=== PATIENT | male | born 1985 | race Caucasian/White ===

== ENCOUNTER 2021-10-30 12:18 | Emergency (ER) | payer OTHER ==
[~2021-10-30] VITALS: Ht 177.8 cm; Wt 63.0 kg
[2021-10-30 12:32] VITALS: BP 117/68
[2021-10-30 12:45] VITALS: BP 114/73
[2021-10-30 13:00] VITALS: BP 126/70
[2021-10-30 13:11] VITALS: BP 108/68
[2021-10-30 13:30] VITALS: BP 115/69
[2021-10-30 13:38] VITALS: BP 115/69
== END 2021-10-30 13:44 | DRG 125 ==
LOC: ED 12:18
DX: S01.112A Laceration without foreign body of left eyelid and periocular area, initial encounter (principal); Y00.XXXA Assault by blunt object, initial encounter; Y92.149 Unspecified place in prison as the place of occurrence of the external cause; S30.811A Abrasion of abdominal wall, initial encounter; S02.2XXA Fracture of nasal bones, initial encounter for closed fracture; X58.XXXA Exposure to other specified factors, initial encounter